=== PATIENT | female | born 1950 | race Caucasian/White ===

== ENCOUNTER 2018-11-17 02:47 | Inpatient (IN) | payer OTHER ==
[~2018-11-17] VITALS: Ht 170.2 cm; Wt 90.0 kg
[2018-11-17] MEDS ORDERED: ONDANSETRON HCL 4 MG/2 ML VIAL IV ONE (04:00)
[2018-11-17] MEDS ORDERED: HYDROmorphone HCL 2 MG/ML VL IV ONE (04:00)
[2018-11-17] MEDS ORDERED: DOCUSATE SOD 100 MG CAP PO PRN (05:15)
[2018-11-17] MEDS ORDERED: ACETAMINOPHEN 325 MG TAB PO PRN (05:15)
[2018-11-17] MEDS ORDERED: TEMAZEPAM 15 MG CAP PO PRN (05:15)
[2018-11-17] MEDS ORDERED: MORPHINE SULFATE 4 MG/ML SYR/VIAL IV PRN (05:15)
[2018-11-17] MEDS ORDERED: cloNIDine HCL 0.1 MG TAB PO PRN (05:15)
[2018-11-17 06:00] LABS: Basophils # (auto) 0.1 uL; Basophils % (auto) 0.4 % (0.0-2.0); Eosinophils # (auto) 0 uL; Eosinophils % (auto) 0.3 % (0.0-7.0); Hematocrit 37.4 % (36.0-46.0); Hemoglobin 12.7 g/dL (12.2-16.2); Lymphocytes # (auto) 1.4 uL; Lymphocytes % (auto) 9.1 % (10.0-50.0); Mean Corpuscular Hemoglobin 29.6 pg (28.0-32.0); Mean Corpuscular Hgb Conc. 33.8 g/dL (32.0-36.0); Mean Corpuscular Volume 87.6 fL (80.0-100.0); Monocytes # (auto) 0.7 uL; Monocytes % (auto) 4.8 % (0.0-12.0); Neutrophils # (auto) 12.7 uL; Neutrophils % (auto) 85.4 % (37.0-80.0); Platelet Count (auto) 248 10^3/uL (140-450); Red Blood Cells 4.27 10^6/uL (4.0-5.20); Red Cell Distribution Width 13.9 % (11.8-14.3); White Blood Cell 14.9 10^3/uL (4.4-10.8)
[2018-11-17 06:11] LABS: INR 0.93 (0.9-1.15); Partial Thromboplastin Time 26.7 sec (23.78-33.04)
[2018-11-17 06:16] LABS: Blood Urea Nitrogen 27 mg/dL (7-18); Chloride 107 mmol/L (98-107); Potassium 4.3 mmol/L (3.5-5.1); Sodium 140 mmol/L (136-145)
[2018-11-17 06:24] LABS: Alanine Aminotransferase 21 U/L (13-56); Albumin 3.9 g/dL (3.4-5.0); Alkaline Phosphatase 86 U/L (45-117); Anion Gap 7 (5-15); Aspartate Aminotransferase 18 U/L (15-37); Bilirubin, Total 0.3 mg/dL (0.2-1.0); Carbon Dioxide 26 mmol/L (21-32); GFR African American 80 mL/min; GFR Non-African American 66 mL/min; Glucose 130 mg/dL (74-106); Total Protein 7.2 g/dL (6.4-8.2)
[2018-11-17] MEDS: LEVOTHYROXINE SODIUM 25 MCG TAB PO SCH (07:00)
[2018-11-17] MEDS ORDERED: traMADol HCL 50 MG TAB PO PRN (07:15)
--- NOTE | 2018-11-17 08:30 | NUR ---
MS admit from ER [place] admitted to tele/MS after SBAR received. Patient oriented to Cassius Choudhary RN primary RN, unit, room, bed, and unit policies regarding patient care and visiting hours. Patient weighed by bedscale and encouraged to call if they need something. All questions and concerns addressed, patient verbalized understanding.
[2018-11-17 09:00] VITALS: BP 128/72
[2018-11-17] MEDS ORDERED: LEVO50TA7 PO (09:28)
[2018-11-17] MEDS ORDERED: TRAM50TA2 PO (09:28)
[2018-11-17] MEDS: ONDANSETRON HCL 4 MG/2 ML VIAL IV PRN ×3 (09:53→20:43)
[2018-11-17] MEDS: HYDROmorphone HCL 2 MG/ML VL IV PRN ×3 (09:53→20:43)
[2018-11-17] MEDS: ENOXAPARIN SOD 40 MG/0.4 ML SYRINGE SC SCH (09:54)
[2018-11-17] MEDS: LOSARTAN POTASSIUM 50 MG TAB PO SCH (09:54)
[2018-11-17] MEDS: FAMOTIDINE 20 MG TAB PO SCH ×2 (09:54→21:46)
--- NOTE | 2018-11-17 11:44 | NUR ---
HOUSE SUP MADE AWARE RE: THE SURGERY ORDER FR TOMORROW BY MD KASH SEBASTIAN.
[2018-11-17 13:00] VITALS: BP 131/61
--- NOTE | 2018-11-17 13:00 | NUR ---
MD GILMORE AT BEDSIDE
--- NOTE | 2018-11-17 16:43 | NUR ---
CONSENT NOT SIGNED QUESTIONS ADDRESSED ON THE PROCEDURE THAT NEED TO BE DONE TOMORROW BUT PATIENT IS NOT COMFORTABLE ENOUGH SIGNING FOR THE CONSENT AND WANTED TO HEAR FROM THE DOCTOR AGAIN RE: THE PROCEDURE. PER PATIENT "IM NOT IN TO MYSELF AND WASN'T ABLE TO FULLY UNDERSTAND ON HOW WILL IT BE DONE SO I NEED TO TALK TO HIM MORE". WILL ENDORSE Addendum: 11/17/18 at 1646 by Cassius Choudhary RN RN [facility] AT [facility]
[2018-11-17 16:52] VITALS: BP 143/99
--- NOTE | 2018-11-17 19:30 | NUR ---
OPENING NOTE REPORT RECEIVED FROM DAY SHIFT RN PATIENT IS A/OX4 ABLE TO ANSWER ALL QUESTIONS APPROPRIATELY. PATIENT C/O PAIN TO RIGHT LEG. PAIN MEDICATION NOT YET DUE, AND PATIENT IS AWARE OF THAT. RICHARDS DRAINING YELLOW URINE TO GRAVITY. PATIENT ABLE TO HELP TURN/REPOSITION WITH SOME ASSISTANCE. PATIENT EDUCATED TO REPOSITION TO AVOID SKIN BREAKDOWN TO SACRAL AREA FROM PROLONGED PERIODS OF LYING IN THE SAME POSITION. POC FOR TONIGHT DISCUSSED, ALL QUESTIONS ANSWERED. PATIENT MADE AWARE TO BE NPO AT MIDNIGHT FOR PENDING PROCEDURE TOMORROW. PATIENT VERBALIZED UNDERSTANDING, CALL LIGHT WITHIN REACH. WILL MONITOR Q1H PRN THROUGHOUT SHIFT.
--- NOTE | 2018-11-17 20:45 | NUR ---
BEDPAN BEDPAN PLACED UNDERNEATH PATIENT PER PATIENT REQUEST. PATIENT UNABLE TO HAVE BM AT THIS TIME. PATIENT STATES, "I'M REALLY GASSY".BEDPAN REMOVED. PATIENT EDUCATED TO CALL WHEN SHE FEELS THAT SHE NEEDS TO HAVE A BM.
[2018-11-17 22:00] VITALS: BP_SYST 117; BP_SYST 118; BP_DIAS 62; BP_DIAS 69
[2018-11-17] MEDS ORDERED: LACTATED RINGER'S 1,000 ML IV SCH (23:45)
[2018-11-18] MEDS: ONDANSETRON HCL 4 MG/2 ML VIAL IV PRN (04:20)
[2018-11-18] MEDS: HYDROmorphone HCL 2 MG/ML VL IV PRN (04:21)
[2018-11-18 04:50] VITALS: BP 116/57
--- NOTE | 2018-11-18 05:57 | NUR ---
[facility] PATIENT WIPED WITH CHG WIPES. COMPLETE LINEN AND GOWN CHANGE PROVIDED PATIENT TOLERATED WELL
[2018-11-18] MEDS: LEVOTHYROXINE SODIUM 25 MCG TAB PO SCH (06:52)
[2018-11-18 07:16] LABS: Basophils # (auto) 0.1 uL; Basophils % (auto) 0.6 % (0.0-2.0); Eosinophils # (auto) 0.1 uL; Eosinophils % (auto) 1.5 % (0.0-7.0); Hematocrit 31.9 % (36.0-46.0); Hemoglobin 11.2 g/dL (12.2-16.2); Lymphocytes # (auto) 1.2 uL; Lymphocytes % (auto) 14.8 % (10.0-50.0); Mean Corpuscular Hemoglobin 30.6 pg (28.0-32.0); Mean Corpuscular Volume 87.4 fL (80.0-100.0); Monocytes # (auto) 0.6 uL; Neutrophils # (auto) 6.3 uL; Neutrophils % (auto) 76.1 % (37.0-80.0); Platelet Count (auto) 183 10^3/uL (140-450); Red Blood Cells 3.64 10^6/uL (4.0-5.20); Red Cell Distribution Width 13.9 % (11.8-14.3); White Blood Cell 8.3 10^3/uL (4.4-10.8)
[2018-11-18 07:24] LABS: Potassium 4.1 mmol/L (3.5-5.1)
[2018-11-18 07:29] LABS: BUN/Creatinine Ratio 22.7; Calcium 8.2 mg/dL (8.5-10.1); Magnesium 2.1 mg/dL (1.6-2.6)
--- NOTE | 2018-11-18 07:30 | NUR ---
OPENING NOTE ASSUMED CARE OF PATIENT. PT IS LAYING ON BED, AWAKE, HOB LOW-FOWLERS. A&O X4. ON 2 LPM/NC, O2 SATURATIONS 95%. NO SIGNS OF SOB/DISTRESS NOTED. RICHARDS CATH INTACT, PATENT AND DRAINING CLOUDY WITH SEDIMENT LIGHT CORKY URINE TO GRAVITY. SAFETY PRECAUTIONS IN PLACE INCLUDING BED SET TO LOWEST POSITION/LOCKED. BEDSIDE RAILS UP X2. CALL LIGHT WITHIN REACH. INSTRUCTED PT TO CALL FOR ASSISTANCE. DISCUSSED POC WITH PT. PT VERBALIZED UNDERSTANDING. WILL CONTINUE TO MONITOR Q 1 HR AND PRN.
--- NOTE | 2018-11-18 07:31 | NUR ---
CLOSING NOTE REPORT ENDORSED TO DAY SHIFT RN PT IS RESTING IN BED. PT NPO SINCE MIDNIGHT, PREOP CHECKLIST COMPLETED AND IN CHART, CONSENTS TO BE SIGNED ONCE PATIENT SPEAKS WITH SURGEON. CALL LIGHT WITHIN REACH
[2018-11-18 08:00] VITALS: BP 105/50
[2018-11-18] MEDS ORDERED: BUPIVACAINE 0.25% INJ 50ML VIAL ONE (09:46)
[2018-11-18] MEDS ORDERED: BUPIVACAINE W/ EPINEPH 0.25% INJ 50ML MDV ONE (09:46)
[2018-11-18] MEDS: ENOXAPARIN SOD 40 MG/0.4 ML SYRINGE SC SCH (10:00)
[2018-11-18] MEDS: LOSARTAN POTASSIUM 50 MG TAB PO SCH (10:00)
[2018-11-18] MEDS: FAMOTIDINE 20 MG TAB PO SCH ×2 (10:00→22:05)
[2018-11-18] MEDS ORDERED: VANCOMYCIN HCL 1000 MG VL ONE (10:02)
[2018-11-18] MEDS ORDERED: fentaNYL CITRATE 100 MCG/2 ML VL ONE (10:07)
[2018-11-18] MEDS ORDERED: MIDAZOLAM HCL 1MG/1ML-2 ML VIAL ONE (10:09)
[2018-11-18] MEDS ORDERED: MEPERIDINE HCL (50 MG/ML) 1 ML VIAL ONE (10:09)
--- NOTE | 2018-11-18 10:09 | NUR ---
PATIENT OFF UNIT VIA BED TO OR.
[2018-11-18] MEDS ORDERED: MORPHINE SULF(PF) 0.5MG/ML 10ML VIAL ONE (10:17)
[2018-11-18] MEDS ORDERED: KETOROLAC TROMETH 30 MG/ML 1ML VIAL ONE (10:18)
[2018-11-18] MEDS ORDERED: ceFAZolin 1GM/50ML 100 ML IV ONE (10:27)
[2018-11-18] MEDS ORDERED: ETOMIDATE (2MG/ML) 20ML VIAL IV ONE (10:28)
[2018-11-18] MEDS ORDERED: DEXAMETHASONE SOD PHOS 10MG/1ML VIAL INJ ONE (10:28)
[2018-11-18] MEDS ORDERED: PROPOFOL 10 MG/ML 20 ML IV ONE (10:28)
[2018-11-18] MEDS ORDERED: TRANEXAMIC ACID 1,000 mg/10ml INJ VIAL IV ONE ×2 (10:45)
[2018-11-18] MEDS ORDERED: PHENYLEPHRINE HCL 10 MG/ML VL ONE (10:58)
[2018-11-18] MEDS ORDERED: ONDANSETRON HCL 4 MG/2 ML VIAL IV ONE (11:30)
[2018-11-18] MEDS ORDERED: MORPHINE SULFATE 4 MG/ML SYR/VIAL IV PRN (11:30)
[2018-11-18] MEDS ORDERED: ePHEDrine SULFATE 50 MG/ML AMP IV PRN (11:30)
[2018-11-18] MEDS ORDERED: HYDROmorphone HCL 2 MG/ML VL IV PRN (11:30)
[2018-11-18] MEDS ORDERED: LABETALOL HCL 5 MG/ML 4ML SYRINGE IV PRN (11:30)
[2018-11-18] MEDS ORDERED: KETOROLAC TROMETH 30 MG/ML 1ML VIAL IV ONE (11:30)
[2018-11-18] MEDS ORDERED: MORPHINE SULFATE 4 MG/ML SYR/VIAL IV ONE (12:00)
[2018-11-18 14:00] VITALS: BP 119/62
--- NOTE | 2018-11-18 14:14 | NUR ---
PATIENT BACK ON UNIT VIA BED FROM PACU. DRESSING TO RIGHT HIP CLEAN, DRY AND INTACT. NO SOB/DISTRESS NOTES. WILL CONTINUE TO MONITOR Q 1HR AND PRN.
[2018-11-18] MEDS: LACTATED RINGER'S 1,000 ML IV SCH ×2 (14:22→17:13)
[2018-11-18] MEDS: SODIUM CHLOR 0.9% PF (SALINE LOCK) 10ML VIAL/SYR IV SCH ×2 (14:23→22:05)
[2018-11-18 16:00] VITALS: BP 106/54
[2018-11-18] MEDS: ceFAZolin 1GM/50ML 50 ML IV SCH ×2 (17:13→22:43)
--- NOTE | 2018-11-18 19:46 | NUR ---
ENDORSED CARE TO RADHA MONTAGUE.
--- NOTE | 2018-11-18 19:50 | NUR ---
Called to Dr. Oscar updated on patient status and reason for call, orders received to upgrade patient to Tele unit. Continue care.
--- NOTE | 2018-11-18 20:30 | NUR ---
Endorse care to Stephanie SHEEHAN RN No S/S of distress/SOB or pain. Heart rhythm is SR 85, continuously monitoring with tele box # [id number].
--- NOTE | 2018-11-18 20:35 | NUR ---
Assumed care of patient, alert/oriented, respirations even and unlabored. Dressing to right hip dry and intact, rios draining to light yogesh urine output. Discussed on POC, instructed to call as needed, patient verbalized understanding, call light within reach, will continue to monitor
[2018-11-18 22:15] VITALS: BP 112/60
[2018-11-19] MEDS: ceFAZolin 1GM/50ML 50 ML IV SCH (05:00)
[2018-11-19 05:46] VITALS: BP 119/62
[2018-11-19] MEDS: SODIUM CHLOR 0.9% PF (SALINE LOCK) 10ML VIAL/SYR IV SCH ×3 (06:52→22:49)
[2018-11-19] MEDS: LEVOTHYROXINE SODIUM 25 MCG TAB PO SCH (06:52)
--- NOTE | 2018-11-19 06:52 | NUR ---
Rios catheter dc'd Order to discontinue rios catheter. Rios dc'd with clean technique following deflation of balloon. Patient tolerated well with no complaints of pain. Continue care.
[2018-11-19 07:14] LABS: Hematocrit 27.6 % (36.0-46.0); Hemoglobin 9.6 g/dL (12.2-16.2)
[2018-11-19 07:23] LABS: Potassium 4.1 mmol/L (3.5-5.1)
[2018-11-19 07:28] LABS: Albumin 2.6 g/dL (3.4-5.0); BUN/Creatinine Ratio 21.3; Bilirubin, Total 0.4 mg/dL (0.2-1.0); Calcium 8.1 mg/dL (8.5-10.1); Total Protein 5.8 g/dL (6.4-8.2)
--- NOTE | 2018-11-19 07:30 | NUR ---
OPENING NOTE ASSUMED CARE OF PATIENT. PT IS LAYING ON BED, AWAKE, HOB LOW-FOWLERS. A&O X4. ON 2 LPM/NC, O2 SATURATIONS 96%. NO SIGNS OF SOB/DISTRESS NOTED. DRESSING TO RIGHT HIP CLEAN, DRY AND INTACT. SAFETY PRECAUTIONS IN PLACE INCLUDING BED SET TO LOWEST POSITION/LOCKED. BEDSIDE RAILS UP X2. CALL LIGHT WITHIN REACH. INSTRUCTED PT TO CALL FOR ASSISTANCE. DISCUSSED POC WITH PT. PT VERBALIZED UNDERSTANDING. WILL CONTINUE TO MONITOR Q 1 HR AND PRN.
[2018-11-19] MEDS: LACTATED RINGER'S 1,000 ML IV SCH ×2 (08:26→16:44)
[2018-11-19 09:12] VITALS: BP 109/86
[2018-11-19] MEDS ORDERED: ENOXAPARIN SOD 40 MG/0.4 ML SYRINGE SC SCH (10:00)
[2018-11-19] MEDS ORDERED: PATIENTS OWN MEDICATION IV ONE (10:00)
[2018-11-19] MEDS: LOSARTAN POTASSIUM 50 MG TAB PO SCH (11:16)
[2018-11-19] MEDS: FAMOTIDINE 20 MG TAB PO SCH ×2 (11:17→22:49)
[2018-11-19 13:12] VITALS: BP 133/67
--- NOTE | 2018-11-19 15:57 | NUR ---
PATIENT TELE STRIP: TELE #29, SR 99 WITH BBB.
[2018-11-19] MEDS: ONDANSETRON HCL 4 MG/2 ML VIAL IV PRN ×2 (16:45→20:23)
[2018-11-19 17:00] VITALS: BP 104/63
--- NOTE | 2018-11-19 19:30 | NUR ---
Paged Dr. Chavez regarding patients heart rate running RVR up to 180's. New orders carried out to transfer to [facility] for amiodorone drip. Charge nurse aware and working on a bed for patient. Patient is very nauseous. No complaints of pain. BP low 89/59. Notified family in room along with patient. Ice chips given
--- NOTE | 2018-11-19 19:35 | NUR ---
SPOKE TO LOPEZ FROM [facility], WAS MADE AWARE PATIENT HEART RATE RUNNING RVR IN 180'S. PATIENT IS ASYMPTOMATIC. PATIENT IS SITTING ON BED, A&O. NO SIGNS OF SOB/DISTRESS NOTED. PATIENT DENIES ANY PAIN. PATIENT STATES "I FEEL VERY NAUSEOUS." NOC NURSE CORKY IS AWARE.
--- NOTE | 2018-11-19 19:45 | NUR ---
Called Dr. Chavez again and asked if he wanted us to give any other medication as we wait for a [facility] bed, stated we needed to transfer her and do the drip and previous orders.
[2018-11-19] MEDS ORDERED: AMIODARONE HCL 150 MG in D5W 5% 100 ML IV ONE (19:50)
[2018-11-19 20:00] VITALS: BP_SYST 109; BP_SYST 89; BP_DIAS 59; BP_DIAS 86
[2018-11-19] MEDS ORDERED: AMIODARONE HCL 900 MG in DEXTROSE 500 ML IV SCH (20:00)
--- NOTE | 2018-11-19 20:05 | NUR ---
Called Dr. Gaitan and notified him of patients heart rate and blood pressure and what Dr. Chavez has ordered. He said to give the bolus over 30 minutes due to her blood pressure being low. Will notify [facility] nurse.
--- NOTE | 2018-11-19 20:30 | NUR ---
Patients heart rate has decreased significantly around 115-120's. Patients verbalized that she has no more nausea as well. Assisted to commode. Changed linens an gown. Was feeling very warm and clammy. Temp 98.6. Ice pack and juice given as well.Daughters at [facility]. Urine foul odor dark yogesh. Continuing to monitor closely. Iv patent and infusing
--- NOTE | 2018-11-19 21:13 | NUR ---
Heart rate staying at 100-102
[2018-11-19 22:01] VITALS: BP 116/56
--- NOTE | 2018-11-19 22:06 | NUR ---
Report given to Ila in [facility]. Will transfer patient. Vitals stable 116/64. HR 98. Paged Dr. Chavez awaiting hid call on wether to transfer the patient or stay on floor. Asypmtomatic at this time. No nausea
--- NOTE | 2018-11-19 22:30 | NUR ---
Spoke with Dr. Gaitan regarding patient converting back to SR. Orders to cancel transfer and amiodorone drip. Patient resting at this time. No distress noted. Vitals stable. sheet metal worker supervisor Faustino made aware
[2018-11-19] MEDS: HYDROmorphone HCL 2 MG/ML VL IV PRN (22:50)
[2018-11-20] MEDS ORDERED: AMIODARONE HCL 900 MG in DEXTROSE 500 ML IV SCH (02:00)
--- NOTE | 2018-11-20 02:00 | NUR ---
paged Dr. Gaitan regarding elevated troponin (4.27). Awaiting return phone call. Patient resting. No distress noted
--- NOTE | 2018-11-20 04:28 | NUR ---
Paged Dr. Gaitan again. Awaiting return phone call
--- NOTE | 2018-11-20 04:38 | NUR ---
Spoke with Dr. Gaitan regarding elevated troponin. New orders carried out
[2018-11-20] MEDS: LACTATED RINGER'S 1,000 ML IV SCH (04:40)
[2018-11-20] MEDS: ASPirin 325 MG TAB PO ONE ×2 (04:45→06:00)
[2018-11-20 05:00] VITALS: BP 133/78
[2018-11-20 05:54] LABS: Basophils # (auto) 0 uL; Basophils % (auto) 0.7 % (0.0-2.0); Eosinophils # (auto) 0.3 uL; Eosinophils % (auto) 4.9 % (0.0-7.0); Hematocrit 26.5 % (36.0-46.0); Hemoglobin 9.1 g/dL (12.2-16.2); Lymphocytes # (auto) 1.4 uL; Lymphocytes % (auto) 21.3 % (10.0-50.0); Mean Corpuscular Hemoglobin 30.5 pg (28.0-32.0); Mean Corpuscular Hgb Conc. 34.3 g/dL (32.0-36.0); Monocytes # (auto) 0.7 uL; Monocytes % (auto) 11.3 % (0.0-12.0); Neutrophils # (auto) 4.1 uL; Neutrophils % (auto) 61.8 % (37.0-80.0); Nucleated Red Blood Cells % 0.1 %; Platelet Count (auto) 190 10^3/uL (140-450); Red Blood Cells 2.97 10^6/uL (4.0-5.20); Red Cell Distribution Width 13.6 % (11.8-14.3); White Blood Cell 6.6 10^3/uL (4.4-10.8)
[2018-11-20] MEDS: SODIUM CHLOR 0.9% PF (SALINE LOCK) 10ML VIAL/SYR IV SCH ×3 (06:01→21:58)
[2018-11-20 06:20] LABS: Potassium 4.2 mmol/L (3.5-5.1)
[2018-11-20 06:35] LABS: BUN/Creatinine Ratio 20.2; Calcium 8.1 mg/dL (8.5-10.1)
[2018-11-20] MEDS: LEVOTHYROXINE SODIUM 25 MCG TAB PO SCH (06:49)
--- NOTE | 2018-11-20 06:49 | NUR ---
Held Aspirin due to patient refusing. Stated it upsets her stomach and shes not supposed to take it. Aware she is NPO at this time. Vitals stable
--- NOTE | 2018-11-20 07:03 | NUR ---
Patient made aware of NPO status. Verbalized understanding. Patient seems anxious regarding when she will be discharged. Explained to her Dr. Gaitan might want to due some test regarding her heart and he will see her today
--- NOTE | 2018-11-20 08:37 | NUR ---
Spoke to Hospitalist MD Walker at bedside, aware of patients status including critical trop levels and pt episode of "afib with rvr" per Noc rn. New orders received to change frequency of Lovenox to BID. I have paged Dr Gaitan as requested by MD Walker regarding possibly LHC vs stress test? or what he expects to order. I spoke to [facility] with DR Gaitan's answering service. Will cont care pt sitting up in chair no s/s of acute distress or sob. pt denies any CP/discomfort
--- NOTE | 2018-11-20 09:18 | NUR ---
SPOKE TO DR GILMORE I SPOKE TO DR GILMORE AND NOTIFIED OF PT STATUS. NEW ORDERS TO HOLD LOVENOX FOR "NOW", CT CHEST W/O CONTRAST, AND ECHO POST EPISODE OF AFIB/INCREASED TROPS. I PAGED JUNIOR UNDERWRITER TO BEDSIDE AND CALLED PRINT PRODUCTION MANAGER FOR CTA. PATIENT MADE AWARE, WILL CONT TO MONITOR
[2018-11-20] MEDS ORDERED: IOHEXOL 350 MG/ML 100ML IJ ONE (09:30)
--- NOTE | 2018-11-20 09:42 | NUR ---
Patient taken down to CT No distress or sob noted accompanied by veronika DIAZ and Tolu
[2018-11-20 09:45] VITALS: BP 124/69
[2018-11-20] MEDS ORDERED: ENOXAPARIN SOD 100 MG/1 ML SYRINGE SC SCH ×2 (10:00)
--- NOTE | 2018-11-20 10:03 | NUR ---
MEDICINE TECH AT BEDSIDE MD GILMORE AT BEDSIDE, PT BROUGHT BACK FROM CT. NO S/S OF DISTRESS OR SOB. NEW ORDER FROM DR GILMORE TO OBTAIN EKG. HE STATES HE WILL F/U ON CTA RESULTS. CONT CARE
--- NOTE | 2018-11-20 10:23 | NUR ---
SPOKE TO ACCREDITATION SPECIALIST RE: CTA RESULTS DR GILMORE MADE AWARE OF CTA RESULTS AND EKG. HE STATES CONT NPO STATUS, CONT TO HOLD LOVENOX. HE STATES AWAITING ECHO AT THIS TIME. I ENDORSED CARE TO FRANCOIS GARCIA AND MADE AWARE OF PT POC AND ORDERS. FRANCOIS INSTRUCTED TO F/U WITH DR GILMORE FOR ECHO RESULTS AND/OR FURTHER ORDERS. PATIENT SITTING UP IN CHAIR, NO S/S OF ACUTE DISTRESS OR SOB. PATIENT DENIES CP. FAMILY AT BEDSIDE. CALL LIGHT WITHIN REACH.
[2018-11-20] MEDS: LOSARTAN POTASSIUM 50 MG TAB PO SCH (10:46)
[2018-11-20] MEDS: FAMOTIDINE 20 MG TAB PO SCH ×2 (10:46→21:57)
[2018-11-20] MEDS: ATORVASTATIN 20 MG TAB PO SCH (10:46)
[2018-11-20] MEDS: D5W/SOD CHLO 0.9% 1,000 ML IV SCH ×2 (10:53→21:57)
--- NOTE | 2018-11-20 10:56 | NUR ---
assessment Patient is a 68 year old female who is alert and oriented. Patients cognitive abilities are intact. Prior to admission patient lived home with family and functioned independently. Patient informed me she is able to care for her own ADLs. Patient informed me she got up off the couch at 1 am in the morning and slipped on the tile and fractured her hip. Patient is requesting rehab on discharge. Patients PCP is Dr Carrero. Per patient she will return home to her prior living arrangements post discharge and family will transport her home. I informed patient she has a right to speak to a healthcare social worker regarding all care. I informed patient she has a right to participate in any and all discharge planning. Patient is aware of visiting hours on the hospital floor. I informed patient she has a right to privacy. Patient does not have a POA and advanced directive. I have offered patient information on POA and advanced directives. I informed the patient the advantages and benefits of having an Advanced Directive. Patient verbalized understanding and agreed to discharge plan. Per consult SNF placement. MD order has been sent to [facility], [facility], and [facility]. Waiting for reply back now. Addendum: 11/20/18 at 1104 by Cathie Goode Amended: Links added.
--- NOTE | 2018-11-20 11:32 | NUR ---
ORDER AND CLINICALS FAXED TO [facility] REQUESTING AUTH FOR [facility] AND FOR TRANSPORTATION.
--- NOTE | 2018-11-20 12:08 | NUR ---
AUTH OF [facility] [id number]. AUTH FOR [facility] [id number]
--- NOTE | 2018-11-20 13:24 | NUR ---
Paged Dr Walker, to notify critical value of troponin 2.26. awaiting call back.
[2018-11-20 13:27] VITALS: BP 127/60
--- NOTE | 2018-11-20 13:40 | NUR ---
spoke to dr gilbert and notified him critical value troponin 2.26. no new orders given. advised me to call and notify dr oliva. will carry out.
--- NOTE | 2018-11-20 13:41 | NUR ---
paged Dr oliva. awaiting call back.
--- NOTE | 2018-11-20 17:00 | NUR ---
Dr Walker called. Gave him report that the CT angio was negative. Would like this RN to inform Dr. Gaitan that the patient can be heart cathed tomorrow.
[2018-11-20 17:29] VITALS: BP 129/74
--- NOTE | 2018-11-20 17:33 | NUR ---
Dr. Larry at bedside Informing patient that she will have a left heart catheterization tomorrow morning. Patient consented and signed the written consents with no questions. Lovenox also discontinued by Dr. Larry. Patient will be NPO after midnight.
--- NOTE | 2018-11-20 19:30 | NUR ---
OPENING NOTE REPORT RECEIVED FROM DAY SHIFT RN PATIENT IS A/OX4, RESTING IN BED WITH FAMILY AT BEDSIDE. DRESSING TO RIGHT HIP INTACT, NO SIGNS OF ACTIVE BLEEDING NOTED. SCD'S ON BILATERALLY. INCENTIVE SPIROMETER AT BEDSIDE AND PATIENT ABLE TO DEMONSTRATE PROPER USE. POC FOR TONIGHT DISCUSSED, PATIENT AWARE TO BE NOTHING BY MOUTH AFTER AT MIDNIGHT FOR LEFT HEART CATH TOMORROW. FALL PRECAUTIONS IN PLACE, CALL LIGHT WITHIN REACH. WILL MONITOR CLOSELY.
--- NOTE | 2018-11-20 19:33 | NUR ---
Spoke to Dr Gaitan, and notified him of critical value of troponin. Kandy OVIEDO gave order to obtain consent of heart cath tomorrow, stop future troponin lab draws, put cardiac diet, NPO after midnight. RADHA Robins put order for heart cath for tomorrow from DR. Larry.
[2018-11-20] MEDS: CARVEDILOL 3.125 MG TAB PO SCH (21:58)
[2018-11-20 22:00] VITALS: BP 110/53
--- NOTE | 2018-11-21 | NUR ---
PATIENT UP TO BEDSIDE COMMODE PT ABLE TO VOID CLEAR YELLOW URINE PATIENT ASSISTED BACK INTO BED, SCD'S PLACED BACK ON PT TOLERATED WELL
[2018-11-21 05:00] VITALS: BP 118/65
--- NOTE | 2018-11-21 05:30 | NUR ---
CHG CHG BATH GIVEN FOR PENDING PROCEDURE TODAY
[2018-11-21] MEDS: LEVOTHYROXINE SODIUM 25 MCG TAB PO SCH (06:12)
[2018-11-21] MEDS: D5W/SOD CHLO 0.9% 1,000 ML IV SCH (06:12)
[2018-11-21] MEDS: SODIUM CHLOR 0.9% PF (SALINE LOCK) 10ML VIAL/SYR IV SCH ×3 (06:12→22:20)
--- NOTE | 2018-11-21 06:40 | NUR ---
BM PATIENT HAD LARGE BROWN SOFT FORMED BM PATIENT ASSISTED BACK INTO BED FROM COMMODE PT TOLERATED WELL. PT BACK ON SCD'S
[2018-11-21 07:15] LABS: Basophils # (auto) 0 uL; Basophils % (auto) 0.5 % (0.0-2.0); Eosinophils # (auto) 0.3 uL; Eosinophils % (auto) 5.5 % (0.0-7.0); Hematocrit 24.3 % (36.0-46.0); Hemoglobin 8.5 g/dL (12.2-16.2); Lymphocytes % (auto) 19.2 % (10.0-50.0); Mean Corpuscular Hemoglobin 30.8 pg (28.0-32.0); Mean Corpuscular Hgb Conc. 35.1 g/dL (32.0-36.0); Mean Corpuscular Volume 87.7 fL (80.0-100.0); Monocytes # (auto) 0.6 uL; Monocytes % (auto) 10.4 % (0.0-12.0); Neutrophils # (auto) 3.5 uL; Neutrophils % (auto) 64.4 % (37.0-80.0); Nucleated Red Blood Cells % 0.1 %; Platelet Count (auto) 207 10^3/uL (140-450); Red Blood Cells 2.77 10^6/uL (4.0-5.20); Red Cell Distribution Width 13.4 % (11.8-14.3); White Blood Cell 5.5 10^3/uL (4.4-10.8)
[2018-11-21 07:36] LABS: Potassium 3.8 mmol/L (3.5-5.1)
[2018-11-21 07:45] LABS: Calcium 7.7 mg/dL (8.5-10.1)
--- NOTE | 2018-11-21 07:48 | NUR ---
CLOSING NOTE REPORT ENDORSED TO DAY SHIFT RN PT IS RESTING, PT HAS BEEN NPO SINCE MIDNIGHT FOR PROCEDURE. CHECKLIST AND CONSENTS COMPLETED AND IN PAPER CHART. PT RESTING NOW, NO INCIDENT DURING NIGHT CALL LIGHT WITHIN REACH
--- NOTE | 2018-11-21 08:00 | NUR ---
Opening Shift Note Assumed care of patient, awake and alert x4, sitting up bed. No S/S of distress or SOB. Plan of care was discussed for the day. Bed locked in low position, call light within reach. Advised patient to call if assistance is needed. Will continue to monitor q1hr or PRN throughout the shift.
[2018-11-21 09:00] VITALS: BP 131/66
[2018-11-21] MEDS: ATORVASTATIN 20 MG TAB PO SCH (09:31)
[2018-11-21] MEDS: CARVEDILOL 3.125 MG TAB PO SCH ×2 (09:32→22:21)
[2018-11-21] MEDS: LOSARTAN POTASSIUM 50 MG TAB PO SCH (09:32)
[2018-11-21] MEDS: FAMOTIDINE 20 MG TAB PO SCH ×2 (09:33→22:20)
[2018-11-21] MEDS: ASPirin 325 MG TAB PO SCH (09:34)
--- NOTE | 2018-11-21 09:49 | NUR ---
PER ADDIE AT [facility] PATIENT WILL BE GOING TO [facility] AND NOT [facility] WHEN DISCHARGED. PHONE NUMBER FOR REPORT IS [phone] Addendum: 11/21/18 at 1000 by Anand Quispe RN CM PATIENT HAS BEEN PUT ON WILL CALL WITH MEHDI. PLEASE CALL [phone] WHEN PATIENT IS READY TO DISCHARGE.
[2018-11-21 12:30] VITALS: BP 126/58
--- NOTE | 2018-11-21 12:45 | NUR ---
PT TAKEN TO LEAD JAVASCRIPT ENGINEER.
--- NOTE | 2018-11-21 13:36 | NUR ---
Pt. at laborer for procedure Addendum: 11/21/18 at 1336 by Faviola De Luna RN Amended: Links added.
[2018-11-21] MEDS ORDERED: ANGIOMAX 250 MG VIAL IV ONE (14:08)
[2018-11-21] MEDS ORDERED: fentaNYL CITRATE 100 MCG/2 ML VL ONE (14:08)
[2018-11-21] MEDS ORDERED: VERAPAMIL 2.5MG/ML INJ 2ML VIAL IV ONE (14:08)
[2018-11-21] MEDS ORDERED: MIDAZOLAM HCL 1MG/1ML-2 ML VIAL ONE (14:08)
[2018-11-21] MEDS ORDERED: SODIUM CHL 0.9% 0 ML ONE (14:09)
[2018-11-21] MEDS ORDERED: LIDOCAINE 2%HCL (LOCAL ANESTH.) INJ 20ML MDV ONE (14:14)
[2018-11-21] MEDS ORDERED: IODIXANOL 320MG/ML 100ML BTL IV ONE (14:14)
--- NOTE | 2018-11-21 14:18 | NUR ---
Pt. at [place] laborer Addendum: 11/21/18 at 1418 by Faviola De Luna RN Amended: Links added.
[2018-11-21] MEDS ORDERED: HEPARIN SODIUM (PORCINE) 5000 UNITS/ML 1ML VIAL ONE (14:48)
--- NOTE | 2018-11-21 15:46 | NUR ---
NUTRITION ASSESSMENT NOTES Please refer to link notes of nutrition screen form filed under the intervention section of the plan of care for further details. Est. Needs: 1850 kcal to 2300 kcal (20-25 kcal/kgBW), 74 gms to 93 gms pro (0.8-1.0 gms/kgBW). Will continue to monitor pertinent labs and reassess nutrient needs prn Thank you. Addendum: 11/21/18 at [address] Amended: Links added.
--- NOTE | 2018-11-21 16:22 | NUR ---
PT BACK AT ROOM FROM REEFER ENGINEER, PT HAS A TR BAND, REEFER ENGINEER NURSE REMOVED 2 ML OF AIR FROM TR BAND, NO BLEEDING NOTICED. WILL CONTINUE TO MONITOR PT.
--- NOTE | 2018-11-21 16:35 | NUR ---
REMOVED 2 ML OF AIR FROM VASCULAR BAND ON LT WRIST, NO BLEEDING NOTICED. PT AND FAMILY EDUCATED TO CALL NURSE IF ANY BLEEDING NOTICED. WILL CONTINUE TO MONITOR.
--- NOTE | 2018-11-21 16:55 | NUR ---
REMOVED 1 ML OF AIR FROM LT WRIST VASCULAR BAND, ALL AIR IS COMPLETELY REMOVED NOW, NO BLEEDING AND NO SWELLING OF LT WRIST NOTICED, NEW DRESSING APPLIED TO LT WRIST, COVERED LT WRIST INCISION SITE WITH GAUZE AND CLEAR TEGADERM, WILL CONTINUE TO MONITOR PT.
[2018-11-21 17:00] VITALS: BP 119/53
--- NOTE | 2018-11-21 17:00 | NUR ---
DRESSING CHANGE CHANGED RT HIP DRESSING, CLEANED WITH NORMAL SALINE, PAD DRY WITH STERILE GAUZE, COVERED WITH MEDIPORE DRESSING, VIOLETA INTACT, NO BLEEDING AND NO REDNESS NOTICED AT INCISION SITE, SWELLING AT ALL RT LEG.
[2018-11-21] MEDS ORDERED: SODIUM CHLORIDE 0.9% 1,000 ML IV SCH (17:15)
[2018-11-21] MEDS: SODIUM CHLORIDE 0.9% 1,000 ML IV SCH (19:15)
--- NOTE | 2018-11-21 19:18 | NUR ---
OPENING NOTE REPORT RECEIVED FROM DAY SHIFT RN PATIENT IS A/OX4, RESTING IN BED WITH FAMILY AT BEDSIDE. DRESSING TO RIGHT HIP INTACT, NO SIGNS OF ACTIVE BLEEDING NOTED. SCD'S ON BILATERALLY. INCENTIVE SPIROMETER AT BEDSIDE AND PATIENT ABLE TO DEMONSTRATE PROPER USE. LEFT WRIST INCISION SITE C/D/I. CIRCULATION ASSESSED AND PATIENT DENIES ANY NUMBNESS OF TINGLING. FALL PRECAUTIONS IN PLACE, CALL LIGHT WITHIN REACH. WILL MONITOR CLOSELY.
[2018-11-21 22:09] VITALS: BP 130/55
[2018-11-22] MEDS: SODIUM CHLORIDE 0.9% 1,000 ML IV SCH (03:35)
[2018-11-22 05:08] VITALS: BP 134/62
[2018-11-22] MEDS: SODIUM CHLOR 0.9% PF (SALINE LOCK) 10ML VIAL/SYR IV SCH ×2 (06:31→14:30)
[2018-11-22] MEDS: LEVOTHYROXINE SODIUM 25 MCG TAB PO SCH (06:31)
[2018-11-22 07:06] LABS: Basophils # (auto) 0 uL; Basophils % (auto) 0.8 % (0.0-2.0); Eosinophils # (auto) 0.3 uL; Eosinophils % (auto) 4.7 % (0.0-7.0); Hematocrit 25.5 % (36.0-46.0); Hemoglobin 8.8 g/dL (12.2-16.2); Lymphocytes # (auto) 1.3 uL; Lymphocytes % (auto) 23.7 % (10.0-50.0); Mean Corpuscular Hemoglobin 30.2 pg (28.0-32.0); Mean Corpuscular Hgb Conc. 34.4 g/dL (32.0-36.0); Mean Corpuscular Volume 87.9 fL (80.0-100.0); Monocytes # (auto) 0.6 uL; Monocytes % (auto) 10.5 % (0.0-12.0); Neutrophils # (auto) 3.3 uL; Neutrophils % (auto) 60.3 % (37.0-80.0); Nucleated Red Blood Cells % 0.1 %; Platelet Count (auto) 250 10^3/uL (140-450); Red Cell Distribution Width 13.4 % (11.8-14.3); White Blood Cell 5.5 10^3/uL (4.4-10.8)
[2018-11-22 07:14] LABS: BUN/Creatinine Ratio 16.2; Calcium 7.5 mg/dL (8.5-10.1); Potassium 3.6 mmol/L (3.5-5.1)
--- NOTE | 2018-11-22 07:48 | NUR ---
CLOSING NOTE REPORT ENDORSED TO DAY SHIFT RN PATIENT RESTING IN BED. DRESSING TO RIGHT HIP IS C/D/I. LEFT WRIST INCISION SITE ALSO C/D/I. NO SIGNS OF DECREASED CIRCULATION NOTED TO RIGHT HAND. PATIENT HAS ALL BELONGINGS AND CALL LIGHT WITHIN REACH.
[2018-11-22 08:12] VITALS: BP 135/77
--- NOTE | 2018-11-22 08:20 | NUR ---
Opening Shift Note Assumed care of patient, awake and alert and oriented x4. No S/S of distress/SOB or pain. Instructed on POC and to call for assist PRN, will continue to monitor for changes. Dressing to right hip C/D/I.
[2018-11-22] MEDS: ATORVASTATIN 20 MG TAB PO SCH ×2 (10:00→11:29)
[2018-11-22] MEDS: CARVEDILOL 3.125 MG TAB PO SCH (10:00)
[2018-11-22] MEDS: ASPirin 325 MG TAB PO SCH ×2 (10:00→11:29)
[2018-11-22] MEDS: LOSARTAN POTASSIUM 50 MG TAB PO SCH (10:21)
[2018-11-22] MEDS: FAMOTIDINE 20 MG TAB PO SCH (10:21)
[2018-11-22 12:05] VITALS: BP 132/69
--- NOTE | 2018-11-22 14:52 | NUR ---
REPORT GIVEN TO BEATRICE AT [facility].
--- NOTE | 2018-11-22 15:00 | NUR ---
SPOKE WITH [facility] REP HARNESSMAKER TIME 1730. PATIENT MADE AWARE AND WILL CONTINUE TO MONITOR.
--- NOTE | 2018-11-22 15:52 | NUR ---
DR JAMES PAGED AND MADE AWARE THAT PATIENT HAS SWELLING TO RIGHT THIGH. PER DR JAMES TO CALL DR SEBASTIAN FOR D/C CLEARANCE BY [facility] AND INFORM HIM OF SWELLING. WILL CONTINUE TO MONITOR.
--- NOTE | 2018-11-22 15:53 | NUR ---
SPOKE WITH DR MEEKS RECEIVED CLEARANCE FOR D/C PER ORTHO. DR SEBASTIAN ALSO MADE AWARE THAT RIGHT THIGH SWOLLEN AT RIGHT HIP SITE. PER DR SEBASTIAN APPLY ICE TO AREA AND ELEVATE LEG ON PILLOW. WILL CONTINUE TO MONITOR.
--- NOTE | 2018-11-22 16:02 | NUR ---
DRESSING CHANGE WOUND CARE DRESSING CHANGE PERFORMED TO RIGHT HIP SURGICAL SITE. [address], NO S/S OF INFECTION NOTED. MINIMAL AMOUNT OF SEROSANGUINEOUS DISCHARGE NOTED TO OLD DRESSING. WILL CONTINUE TO MONITOR.
--- NOTE | 2018-11-22 16:18 | NUR ---
SPOKE WITH JILLIAN AT [facility] AND MADE AWARE TO ELEVATE RIGHT LEG AND APPLY ICE TO SURGICAL SITE. ALSO INFORMED SENIOR FINANCIAL REPORTING ACCOUNTANT TIME 1730 BY [facility]. WILL CONTINUE TO MONITOR.
[2018-11-22 16:27] VITALS: BP 132/69
[2018-11-22 17:03] VITALS: BP 136/75
--- NOTE | 2018-11-22 18:25 | NUR ---
Discharge instructions given as ordered. Encourage to follow up with PMD as instructed. All questions and concerns addressed. Patient verbalized understanding. Medication reconciliation form completed and copy given to patient. IV removed with catheter intact, pressure dressing applied. Telemetry unit returned to [facility]. Patient taken to [facility] vehicle via gurney with all personal belongings, accompanied by [facility] staff and family member. No distress noted at time of departure.
== END 2018-11-22 18:25 | DRG 469 ==
LOC: ER 02:47 → CENTRAL 05:16 → TELE-CENTR 11-18 19:48
PROVIDERS: ADMIT Nurse Practitioner; ATTEND Internal Medicine
PROC: 0SRR0JZ Replacement of Right Hip Joint, Femoral Surface with Synthetic Substitute, Open Approach (ICD-10-PCS; principal; 2018-11-18 10:31)
PROC: 4A023N7 Measurement of Cardiac Sampling and Pressure, Left Heart, Percutaneous Approach (ICD-10-PCS; 2018-11-21)
PROC: B2111ZZ Fluoroscopy of Multiple Coronary Arteries using Low Osmolar Contrast (ICD-10-PCS; 2018-11-21)
DX: S72.011A Unspecified intracapsular fracture of right femur, initial encounter for closed fracture (principal); I21.4 Non-ST elevation (NSTEMI) myocardial infarction; S73.006A Unspecified dislocation of unspecified hip, initial encounter; I10 Essential (primary) hypertension; R79.1 Abnormal coagulation profile; D72.829 Elevated white blood cell count, unspecified; I48.91 Unspecified atrial fibrillation; Z96.641 Presence of right artificial hip joint; J42 Unspecified chronic bronchitis; E03.9 Hypothyroidism, unspecified; W18.30XA Fall on same level, unspecified, initial encounter; E04.1 Nontoxic single thyroid nodule; Z79.899 Other long term (current) drug therapy; Z79.82 Long term (current) use of aspirin; Z82.49 Family history of ischemic heart disease and other diseases of the circulatory system; Z90.710 Acquired absence of both cervix and uterus; Z88.2 Allergy status to sulfonamides; Z88.6 Allergy status to analgesic agent
CPT/HCPCS: 36415; 71045; 71275; 72170; 72192; 73501; 80048; 80053; 83735; 83880; 84484; 85014; 85018; 85025; 85379; 85610; 85730; 86850; 86900; 86901; 93005; 93306; 93970; 96361; 96365; 96375; 97110; 97116; 97163; 97530; A6257; G0378; J0690; J1100; J1885; J2250; J2405; J2704; J3490; J7042; J7060; Q9967